=== PATIENT | male | born 1995 | race African-American/Black ===

== ENCOUNTER 2022-05-07 22:38 | Emergency (ER) | payer SELFPAY ==
[~2022-05-07] VITALS: Ht 172.7 cm; Wt 72.0 kg
[2022-05-08] MEDS ORDERED: DOXYCYCLINE HYCLATE 100MG CAPSULE PO ONE (03:00)
[2022-05-08] MEDS ORDERED: CEFTRIAXONE SODIUM 500 MG/VIAL IM ONE (03:00)
[2022-05-08] MEDS ORDERED: DOXY-326 MT (03:07)
[2022-05-08 03:46] VITALS: BP 124/75
[2022-05-08 03:50] LABS: CLARITY URINE TURBID (CLEAR); COLOR URINE YELLOW (YELLOW); KETONES URINE TRACE (NEGATIVE); LEUKOCYTE ESTERASE URINE 3+ (NEGATIVE); NITRITE URINE NEGATIVE (NEGATIVE); OCCULT BLOOD URINE 1+ (NEGATIVE); PH URINE 5.5 (4.5-8.0); PROTEIN URINE 1+ (NEGATIVE); SPECIFIC GRAVITY URINE 1.021 (1.005-1.030)
[2022-05-10 04:12] LABS: NEISSERIA GONORRHOEAE NAA Positive (Negative)
== END 2022-05-08 03:45 | disposition home or self-care (01) ==
LOC: ER 22:38
DX: R36.9 Urethral discharge, unspecified (principal); R30.0 Dysuria; Z20.2 Contact with and (suspected) exposure to infections with a predominantly sexual mode of transmission
CPT/HCPCS: 81003; 87086; 87491; 87591; 96372; 99283; J0696

== ENCOUNTER 2022-09-16 20:13 | Emergency (ER) | payer SELFPAY ==
[~2022-09-16] VITALS: Ht 172.7 cm; Wt 71.2 kg
[~2022-09-16 20:13] MED LIST: DOXY-456 MT
[2022-09-16 20:22] VITALS: BP 129/72
== END 2022-09-17 01:25 | disposition home or self-care (01) ==
LOC: ER 20:13
DX: S00.33XA Contusion of nose, initial encounter (principal); W01.198A Fall on same level from slipping, tripping and stumbling with subsequent striking against other object, initial encounter; Y93.89 Activity, other specified; Y92.89 Other specified places as the place of occurrence of the external cause
CPT/HCPCS: 70160; 99283